=== PATIENT | male | born 2000 | race Caucasian/White ===

== ENCOUNTER 2024-05-23 20:50 | Emergency (ER) | payer OTHER ==
[2024-05-23] MEDS: Ondansetron 4 MG Tab.DIS PO ONE (22:11)
[2024-05-23] MEDS: Acetaminophen/oxyCODONE 325-5 MG Tab PO ONE (22:11)
[2024-05-23] MEDS: Ibuprofen 600 MG Tab PO ONE (22:11)
== END 2024-05-23 22:43 | disposition home or self-care (01) ==
LOC: MW.ED 20:50
DX: S59.902A Unspecified injury of left elbow, initial encounter (principal); Z75.3 Unavailability and inaccessibility of health-care facilities; F17.210 Nicotine dependence, cigarettes, uncomplicated; X50.9XXA Other and unspecified overexertion or strenuous movements or postures, initial encounter
CPT/HCPCS: 29105; 73080; 99283; A9270